=== PATIENT | male | born 1965 | race Caucasian/White ===

== ENCOUNTER 2017-02-19 10:30 | Emergency (ER) | payer MEDICAID ==
[~2017-02-19] VITALS: Ht 188 cm; Wt 98.0 kg
[~2017-02-19 10:30] MED LIST: SERT100T PO; TRAZ100T15 PO; TRAZODONE PO
[2017-02-19] MEDS ORDERED: SODIUM CHLORIDE 0.9% 1,000ML IVBOLUS ONE (11:30)
[2017-02-19 12:43] LABS: HEMOGLOBIN 14.6 g/dL (13.7-18.0)
[2017-02-19] MEDS ORDERED: OMNIPAQUE 350 MG/ML, 100ML BOTTLE ONE (12:48)
[2017-02-19 12:55] LABS: ASPARTATE AMINO TRANSFERASE 19 U/L (15-37); BLOOD UREA NITROGEN 15 mg/dL (7-18)
[2017-02-19 13:25] VITALS: BP 117/69
== END 2017-02-19 14:09 | disposition home or self-care (01) ==
LOC: ED 12:07
DX: K59.00 Constipation, unspecified (principal); E78.5 Hyperlipidemia, unspecified; F41.1 Generalized anxiety disorder; M54.30 Sciatica, unspecified side; G89.29 Other chronic pain; M54.9 Dorsalgia, unspecified
CPT/HCPCS: 36415; 74177; 80053; 81003; 83690; 85025; 96360; 96361; 99285; J7030; Q9967

== ENCOUNTER 2017-06-06 08:44 | Emergency (ER) | payer MEDICAID ==
[~2017-06-06] VITALS: Ht 188 cm; Wt 93.7 kg
[2017-06-06 11:43] VITALS: BP 130/80
== END 2017-06-06 11:45 | disposition home or self-care (01) ==
LOC: ED 09:01
DX: K92.1 Melena (principal); K59.00 Constipation, unspecified; E78.5 Hyperlipidemia, unspecified; G89.29 Other chronic pain; Z87.891 Personal history of nicotine dependence
CPT/HCPCS: 36415; 85025; 85610; 99284